=== PATIENT | female | born 1950 | race Caucasian/White ===

== ENCOUNTER → 2016-10-14 | Outpatient (CLI) | payer OTHER ==
[~2016-10-14] MED LIST: CETI10TA84 PO; CETI10TA99 PO; CHOL100010 PO; CRG/20 PO; ESTR0.5T3 PO; ESTRADIOL PO; FRC PO; FRCT/ PO; NADO20TA PO; PANT40TA PO; RANI300T2 PO; TRAM-10 PO
[2016-10-14 17:33] LABS: BLOOD UREA NITROGEN 14 mg/dl (7-18); BUN/CREATININE RATIO 15.8 (10-20); CALCIUM 9.4 mg/dl (8.5-10.1); CARBON DIOXIDE 31 mmol/L (21-32); CHLORIDE 107 mmol/L (98-107); GLUCOSE 90 mg/dl (70-99); POTASSIUM 3.6 mmol/L (3.5-5.1); SODIUM 143 mmol/L (136-145)
== END | disposition home or self-care (01) ==
LOC: C.LABBC 15:08
PROVIDERS: ATTEND Internal Medicine Geriatric Medicine
DX: M81.0 Age-related osteoporosis without current pathological fracture (principal)

== ENCOUNTER → 2016-11-01 | Outpatient (CLI) | payer OTHER | END | disposition home or self-care (01) | LOC: C.LABPBG 11:27 | PROVIDERS: ATTEND Internal Medicine Geriatric Medicine | DX: M81.0 Age-related osteoporosis without current pathological fracture (principal); E55.9 Vitamin D deficiency, unspecified ==

== ENCOUNTER → 2016-11-05 | Day surgery (SDC) | payer OTHER ==
[~2016-11-05] VITALS: Ht 157.5 cm; Wt 73.0 kg
[~2016-11-05] MED LIST changes: +ZOLEDRONIC ACID INJ 5 MG in EMPTY BAG 0 ML IV SCH
[2016-11-05 12:30] VITALS: BP 126/83; PULSE 59; TEMP 36.7; O2SAT 99; Ht 157.5 cm; Wt 73.0 kg
== END | disposition home or self-care (01) ==
LOC: C.MTU 12:15
PROVIDERS: ATTEND Internal Medicine Geriatric Medicine
DX: M81.0 Age-related osteoporosis without current pathological fracture (principal)

== ENCOUNTER → 2017-12-03 | Outpatient (CLI) | payer OTHER, MEDICARE ==
[~2017-12-03] MED LIST changes: -CETI10TA84 PO; -CRG/20 PO; +DOXY100C76 PO; -ESTRADIOL PO; -FRC PO; -ZOLEDRONIC ACID INJ 5 MG in EMPTY BAG 0 ML IV SCH
--- NOTE | 2017-12-03 11:34 | DIAGNOSTIC IMAGING REPORT ---
L HAND MIN 3 VIEWS ROUTINE, R HAND MIN 3 VIEWS ROUTINE CLINICAL HISTORY: Bilateral hand pain. COMPARISON STUDY: None. FINDINGS: No fracture or dislocation within the right or left hand. Soft tissues are unremarkable. No bony erosions identified. Mild cartilage space narrowing within the DIP, PIP, and radiocarpal joints of the bilateral hands/wrists. Mild bilateral periarticular osteopenia. IMPRESSION: 1. Mild osteoarthritis within the bilateral hands/wrists as described above. 2. Mild bilateral periarticular osteopenia. Electronically signed by: Thanh Ortiz M.D. 12/03/2017 11:32 AM Dictated Date/Time: 12/03/2017 11:29 AM
[2017-12-03 13:03] LABS: TRANSFERRIN 259 mg/dl (200-360)
== END | disposition home or self-care (01) ==
LOC: C.RAD1850 10:53
PROVIDERS: ATTEND Internal Medicine Rheumatology
DX: M79.643 Pain in unspecified hand (principal); W57.XXXA Bitten or stung by nonvenomous insect and other nonvenomous arthropods, initial encounter